=== PATIENT | male | born 1960 | race Hispanic/Latino ===

== ENCOUNTER 2018-06-24 09:43 | Outpatient (CLI) | payer OTHER ==
--- NOTE | 2018-06-24 11:49 | RAD ---
FACIAL BONES THREE VIEWS: HISTORY: Facial injury. FINDINGS: No air-fluid levels within the maxillary sinuses or sphenoid sinus. Frontal sinuses are hypoplastic. Orbital rims are intact. Nasal septum is midline. No displaced fractures are evident. IMPRESSION: No significant abnormalities are demonstrated. POS: H
== END 2018-06-24 09:44 | disposition home or self-care (01) ==
LOC: BICRAD 09:43
PROVIDERS: ATTEND Nurse Practitioner Family
DX: S05.12XA Contusion of eyeball and orbital tissues, left eye, initial encounter (principal)
CPT/HCPCS: 70150